=== PATIENT | female | born 1940 | race Caucasian/White ===

== ENCOUNTER → 2016-12-27 | Outpatient (CLI) | payer MEDICARE, OTHER ==
[~2016-12-27] MED LIST: ALENDRONATE OR; ARIMIDEX OR; CALCTAB22 OR; LIPI10TA OR; LIPI20TA; MAGN500T2 OR; MOTRIN600 PO; Occuvite OR; RESTASIS OU; SENN OR; TAMOXIFEN; TOPI25TA2 OR; VITAMIN B COMPLE1 OR; VITAMIN D OR
--- NOTE | 2016-12-28 14:29 | REP ---
Whole body PET CT scan: The patient has history of breast carcinoma in 2006 and currently complains of weight loss and night sweats. Study is performed for restaging of breast carcinoma. There are no comparison PET CT scans. The whole-body scanning is performed from skull base to the upper thighs. Neck and supraclavicular areas: There are no hypermetabolic foci. Chest: There are no hypermetabolic foci. Abdomen, pelvis and upper thighs: There are no hypermetabolic foci. There is nonspecific bowel radiolabeling. Impression: There are no hypermetabolic foci. The study is performed with 10 mCi of F 18 FDG. Signed by Geoff Cornejo MD 12/28/2016 02:20 P
== END ==
LOC: M PLARAD 14:22
PROVIDERS: ATTEND Internal Medicine
DX: Z85.3 Personal history of malignant neoplasm of breast (principal); R63.4 Abnormal weight loss; R61 Generalized hyperhidrosis
CPT/HCPCS: 78815; A9552

== ENCOUNTER 2018-02-10 20:08 | Emergency (ER) | payer MEDICARE, OTHER ==
[2018-02-10] MEDS: NS 500 ML IV (21:21)
[2018-02-10 21:38] LABS: BASO # 0.1 10^3/uL (0.0-0.2); BASO % 0.7 % (0.0-1.0); EOS # 0.1 10^3/uL (0.0-0.50); EOS % 1.7 % (0.0-3.0); HEMOGLOBIN 12.3 g/dl (12.0-15.5); IMMATURE GRANULOCYTE % 0.3 % (0-3.0); LYMPH # 2.1 10^3/uL (1.5-4.5); LYMPH % 30.6 % (24.0-44.0); MEAN CORPUSCULAR HGB CONC 34.2 g/dl (32.0-36.5); MEAN CORPUSCULAR VOLUME 96.5 fl (80.0-96.0); MONO # 0.7 10^3/uL (0.0-0.8); MONO % 9.3 % (0.0-5.0); NEUTROPHILS % 57.4 % (36.0-66.0); PLATELET COUNT, AUTOMATED 181 10^3/uL (150-450); RED BLOOD COUNT 3.73 10^6/uL (4.00-5.40); RED CELL DISTRIBUTION WIDTH 13.3 % (11.5-14.5)
[2018-02-10 21:56] LABS: ANION GAP 8 MEQ/L (8-16); BLOOD UREA NITROGEN 22 MG/DL (7-18); CALCIUM LEVEL 9.5 MG/DL (8.8-10.2); CARBON DIOXIDE LEVEL 29 MEQ/L (21-32); CHLORIDE LEVEL 107 MEQ/L (98-107); CREATININE FOR GFR 1.28 MG/DL (0.55-1.30); GLOMERULAR FILTRATION RATE 43.2 (>39); GLUCOSE, FASTING 157 MG/DL (70-100); POTASSIUM SERUM 3.4 MEQ/L (3.5-5.1); SODIUM LEVEL 144 MEQ/L (136-145)
[2018-02-10] MEDS: POTASSIUM CHLORIDE 10 MEQ SR TABLET PO (22:18)
== END 2018-02-10 22:53 | disposition home or self-care (01) ==
LOC: M ED 20:08
DX: E87.6 Hypokalemia (principal); E86.0 Dehydration; H40.9 Unspecified glaucoma; Z85.3 Personal history of malignant neoplasm of breast; Z91.048 Other nonmedicinal substance allergy status; Z79.899 Other long term (current) drug therapy
CPT/HCPCS: 93005

== ENCOUNTER → 2019-04-23 | Outpatient (REF) | payer MEDICARE, OTHER ==
[2019-04-23 12:44] LABS: CLOSTRIDIUM DIFFICILE PCR NEGATIVE (NEGATIVE)
== END ==
LOC: M LAB REF 11:06
PROVIDERS: ATTEND Internal Medicine
DX: R19.7 Diarrhea, unspecified (principal)

== ENCOUNTER → 2019-09-16 | Outpatient (REF) | payer MEDICARE, OTHER ==
[2019-09-16 19:10] LABS: AMYLASE 33 U/L (25-115); LIPASE 71 U/L (73-393)
== END ==
LOC: M LAB REF 17:58
PROVIDERS: ATTEND Nurse Practitioner Family
DX: R10.9 Unspecified abdominal pain (principal)

== ENCOUNTER → 2019-09-25 | Outpatient (REF) | payer MEDICARE, OTHER ==
[2019-09-25 17:32] LABS: C REACTIVE PROTEIN QUANTITATIV < 0.30 MG/DL (0.00-0.30); FERRITIN 73 NG/ML (8-252); IRON (FE) 84 UG/DL (50-170); PERCENT SATURATION 33.6 % (13.2-45.0); TOTAL IRON BINDING CAPACITY 250 UG/DL (250-450)
[2019-09-27 19:27] LABS: CA19-9 TUMOR MARKER,CARBOHYDRA 448.3 U/ML (<35.0)
== END ==
LOC: M LAB REF 16:58
PROVIDERS: ATTEND Internal Medicine
DX: R10.13 Epigastric pain (principal); D64.9 Anemia, unspecified; R10.32 Left lower quadrant pain

== ENCOUNTER → 2019-10-08 | Outpatient (CLI) | payer MEDICARE, OTHER ==
--- NOTE | 2019-10-08 14:54 | REP ---
PET/CT: HISTORY: Restaging right breast carcinoma. COMPARISONS: Comparison PET-CT study December 27, 2016. Comparison is made with recent CT abdomen and pelvis September 24, 2019, which was read as showing metastatic pancreatic carcinoma. TECHNIQUE: 52 minutes following the intravenous injection of a 8.97 mCi dose of F-18 FDG, three-dimensional PET scintigraphy is acquired from the skull base to the proximal thighs. Triplanar noncontrast CT scanning is acquired through the same anatomic range for attenuation correction, and image registration with scan parameters optimized to minimize radiation exposure to the patient. PET scintigraphy and CT datasets were fused and displayed on a workstation with multiplanar and projection display capability. PET/CT FINDINGS: No abnormal ilana or metastatic uptake is seen in the head and neck soft tissues. Normal vascular uptake is seen. There is no evidence of axillary or internal mammary hypermetabolic ilana uptake. No abnormal uptake is seen in the left breast. The right breast is surgically absent. No abnormal pulmonary parenchymal hypermetabolic uptake is seen. No hilar or mediastinal adenopathy or hypermetabolic uptake is seen. There is a 3.6 cm hypermetabolic mass in the head of the pancreas. Maximum standard uptake value in this pancreatic head lesion is 6.55. There is adjacent mesenteric hypermetabolic adenopathy as seen on recent CT study, maximum standard uptake value 6.43. Under the left hemidiaphragm in the left upper quadrant, there is a hypermetabolic lesion with maximum standard uptake value 4.39 consistent with a metastatic focus. Background liver parenchymal metabolic activity is on the range of SUV 3.5. High in the dome of the right lobe of the liver there is an equivocal focus with maximum SUV value 4.0. The accompanying CT study shows no definite mass here. This is equivocal. No other evidence of liver hypermetabolic uptake. No skeletal uptake is seen. No other abdominal or pelvic hypermetabolic focus is seen. IMPRESSION: Findings consistent with pancreatic malignancy with adjacent adenopathy, and a distant metastatic site in the subphrenic region left upper quadrant. Equivocal liver lesion. Electronically Signed by Mina Roberson MD 10/08/2019 04:03 P
== END ==
LOC: M PLARAD 11:04
PROVIDERS: ATTEND Internal Medicine
DX: C50.911 Malignant neoplasm of unspecified site of right female breast (principal)
CPT/HCPCS: 78815; A9552

== ENCOUNTER 2019-10-31 00:59 | Emergency (ER) | payer MEDICARE, OTHER ==
[~2019-10-31] VITALS: Ht 162.6 cm; Wt 50.0 kg
[2019-10-31] MEDS ORDERED: PROMETHAZINE INJ 25 MG/ML VIAL (J2550) As Ordered ONE (01:15)
[2019-10-31] MEDS ORDERED: PROMETHAZINE INJ 25 MG/ML VIAL (J2550) IM ONE (01:30)
[2019-10-31] MEDS ORDERED: NS 500 ML IV ONE (01:45)
[2019-10-31] MEDS ORDERED: ACETAMINOPHEN *IV* 650 MG in IV 1 EA IV ONE (03:15)
[2019-10-31 04:02] LABS: HEMATOCRIT 34.9 % (36.0-47.0); HEMOGLOBIN 11.7 g/dl (12.0-15.5); MEAN CORPUSCULAR HEMOGLOBIN 32.5 pg (27.0-33.0); MEAN CORPUSCULAR HGB CONC 33.5 g/dl (32.0-36.5); MEAN CORPUSCULAR VOLUME 96.9 fl (80.0-96.0); PLATELET COUNT, AUTOMATED 133 10^3/uL (150-450)
[2019-10-31 04:20] LABS: AMORPHOUS SEDIMENT SMALL (NEGATIVE); APPEARANCE, URINE HAZY (CLEAR); BACTERIA, URINE AUTO NEGATIVE (NEGATIVE); BILIRUBIN, URINE AUTO NEGATIVE (NEGATIVE); BLOOD, URINE BLOOD NEGATIVE (NEGATIVE); COLOR, URINE YELLOW (YELLOW); GLUCOSE, URINE (UA) AUTO 1+ mg/dL (NEGATIVE); KETONE, URINE AUTO TRACE mg/dL (NEGATIVE); LEUKOCYTE ESTERASE, URINE AUTO NEGATIVE (NEGATIVE); NITRITE, URINE AUTO NEGATIVE (NEGATIVE); PROTEIN, URINE AUTO NEGATIVE (NEGATIVE); RBC, URINE AUTO 3 /HPF (0-3); SPECIFIC GRAVITY URINE AUTO 1.008 (1.002-1.035); SQUAMOUS EPITHELIAL CELL UR AU 0 /HPF (0-6); UROBILINOGEN, URINE AUTO 0.2 mg/dL (0.0-2.0); WBC, URINE AUTO 1 /HPF (0-3)
[2019-10-31 04:39] LABS: ALBUMIN 3.6 GM/DL (3.2-5.2); BILIRUBIN,TOTAL 0.6 MG/DL (0.2-1.0); CALCIUM LEVEL 10.2 MG/DL (8.8-10.2); CREATININE FOR GFR 1.07 MG/DL (0.55-1.30); GLOMERULAR FILTRATION RATE 52.8 (>39); POTASSIUM SERUM 3.6 MEQ/L (3.5-5.1); TOTAL PROTEIN 7.5 GM/DL (6.4-8.2)
[2019-10-31] MEDS ORDERED: PROM25TA12 PO (04:58)
[2019-10-31 06:07] VITALS: BP 154/72
--- NOTE | 2019-10-31 07:34 | REP ---
Clinical: Fever and chest pain . Comparison: 03/13/2012 . Findings: The mediastinum and cardiac silhouette are stable and within normal limits for portable technique. The lung morocho are clear without acute consolidation, effusion, or pneumothorax. Skeletal structures are intact. Impression: No acute cardiopulmonary process appreciated. Electronically Signed by Anjel Soriano MD 10/31/2019 07:25 A
== END 2019-10-31 07:15 | disposition home or self-care (01) ==
LOC: M ED 00:59
DX: R11.10 Vomiting, unspecified (principal); Z92.21 Personal history of antineoplastic chemotherapy; C25.9 Malignant neoplasm of pancreas, unspecified; Z91.048 Other nonmedicinal substance allergy status; Z79.899 Other long term (current) drug therapy
CPT/HCPCS: 71045; 80047; 80053; 81001; 83605; 85027; 87040; 87486; 87581; 87633; 87798; 96361; 96372; 96374; 99284; J0131

== ENCOUNTER → 2019-11-04 | Outpatient (CLI) | payer MEDICARE, OTHER ==
[~2019-11-04] MED LIST changes: +ATOR1TAB19 PO; +CEPH500C PO; +CREO24CA PO; +D31000TA2 PO; +DOCU100C16 PO; +ENAB7.5T PO; +LORA-674 PO; +MEGE400S10 PO; +MEGE40TA PO; +MIRA3350 PO; +ONDA8TAB8 PO; +OXYC1TAB23 PO; +PRESCAP PO; +PROC10TA4 PO; +PROM25TA12 PO; +REST0.05 OU; +SENO8.6T10 PO; +SPIR1CAP INH; +SUCR1TA PO; +TOPI50TA9 PO; +XARE15TA PO; +XARE20TA PO
[2019-12-02 03:43] LABS: BASO % 0.6 % (0.0-1.0); EOS # 0.1 10^3/uL (0.0-0.5); EOS % 0.9 % (0.0-3.0); HEMATOCRIT 33.4 % (36.0-47.0); HEMOGLOBIN 11.5 g/dl (12.0-15.5); LYMPH # 0.7 10^3/uL (1.5-5.0); LYMPH % 12.9 % (24.0-44.0); MEAN CORPUSCULAR HEMOGLOBIN 32.4 pg (27.0-33.0); MEAN CORPUSCULAR HGB CONC 34.4 g/dl (32.0-36.5); MEAN CORPUSCULAR VOLUME 94.1 fl (80.0-96.0); MONO # 0.2 10^3/uL (0.0-0.8); MONO % 2.8 % (0.0-5.0); NEUTROPHILS # 4.3 10^3/uL (1.5-8.5); NEUTROPHILS % 81.7 % (36.0-66.0); PLATELET COUNT, AUTOMATED 135 10^3/uL (150-450); RED BLOOD COUNT 3.55 10^6/uL (4.00-5.40); WHITE BLOOD COUNT 5.3 10^3/uL (4.0-10.0)
[2020-01-10 14:52] LABS: GLUCOSE, FASTING SEE SEPARATE REPORT MG/DL
== END ==
LOC: M LAB 10:11
PROVIDERS: ATTEND Nurse Practitioner Family
DX: R11.2 Nausea with vomiting, unspecified (principal); E87.6 Hypokalemia; C25.0 Malignant neoplasm of head of pancreas; K59.00 Constipation, unspecified

== ENCOUNTER 2019-11-29 20:25 | Observation (INO) | payer MEDICARE, OTHER ==
[~2019-11-29] VITALS: Ht 162.6 cm; Wt 48.6 kg
[~2019-11-29 20:25] MED LIST changes: -ATOR1TAB19 PO; -CEPH500C PO; -CREO24CA PO; -D31000TA2 PO; -DOCU100C16 PO; -ENAB7.5T PO; -LORA-674 PO; -MEGE400S10 PO; -MEGE40TA PO; -MIRA3350 PO; -ONDA8TAB8 PO; -OXYC1TAB23 PO; -PRESCAP PO; -PROC10TA4 PO; -REST0.05 OU; -SENO8.6T10 PO; -SPIR1CAP INH; -SUCR1TA PO; -TOPI50TA9 PO; -XARE15TA PO; -XARE20TA PO
[2019-11-29 22:13] LABS: BASO % 0.1 % (0.0-1.0); EOS % 0.1 % (0.0-3.0); HEMATOCRIT 22.9 % (36.0-47.0); HEMOGLOBIN 7.9 g/dl (12.0-15.5); LYMPH # 0.4 10^3/uL (1.5-5.0); LYMPH % 4.5 % (24.0-44.0); MEAN CORPUSCULAR HEMOGLOBIN 33.5 pg (27.0-33.0); MEAN CORPUSCULAR HGB CONC 34.5 g/dl (32.0-36.5); MONO # 0.2 10^3/uL (0.0-0.8); NEUTROPHILS # 7.5 10^3/uL (1.5-8.5); NEUTROPHILS % 92.7 % (36.0-66.0); PLATELET COUNT, AUTOMATED 103 10^3/uL (150-450); RED BLOOD COUNT 2.36 10^6/uL (4.00-5.40); WHITE BLOOD COUNT 8.1 10^3/uL (4.0-10.0)
--- NOTE | 2019-11-29 22:23 | REPVR ---
PROCEDURE INFORMATION: Exam: CT Head Without Contrast Exam date and time: 11/29/2019 10:11 PM Age: 79 years old Clinical indication: Syncope and collapse; Additional info: Sync TECHNIQUE: Imaging protocol: Computed tomography of the head without contrast. Radiation optimization: All CT scans at this facility use at least one of these dose optimization techniques: automated exposure control; mA and/or kV adjustment per patient size (includes targeted exams where dose is matched to clinical indication); or iterative reconstruction. COMPARISON: No relevant prior studies available. FINDINGS: Brain: There is mild age related parenchymal volume loss. Mild white matter changes are consistent with age related small vessel white matter angiopathic gliosis. Ventricles: The degree of ventricular dilatation is normal for age and/or degree of atrophy present. Bones/joints: Unremarkable. No acute fracture. Sinuses: Visualized sinuses are unremarkable. No fluid levels. Mastoid air cells: Visualized mastoid air cells are well aerated. Soft tissues: Unremarkable. IMPRESSION: 1. There is mild age related parenchymal volume loss. Mild white matter changes are consistent with age related small vessel white matter angiopathic gliosis. 2. The degree of ventricular dilatation is normal for age and/or degree of atrophy present. 3. No acute intracranial findings. Electronically signed by: Bipin Rivera On 11/29/2019 22:23:05 PM
[2019-11-29 22:46] LABS: BLOOD UREA NITROGEN 17 MG/DL (7-18); CALCIUM LEVEL 7.3 MG/DL (8.8-10.2); CARBON DIOXIDE LEVEL 21 MEQ/L (21-32); CHLORIDE LEVEL 113 MEQ/L (98-107); CREATININE FOR GFR 0.67 MG/DL (0.55-1.30); GLOMERULAR FILTRATION RATE > 60.0 (>39); GLUCOSE, FASTING 146 MG/DL (70-100); POTASSIUM SERUM 3.6 MEQ/L (3.5-5.1); SODIUM LEVEL 136 MEQ/L (136-145)
[2019-11-29] MEDS ORDERED: OXYC1TAB23 PO (23:47)
[2019-11-29] MEDS ORDERED: XARE20TA PO (23:47)
[2019-11-30] MEDS ORDERED: XARE15TA PO (01:34)
[2019-11-30] MEDS ORDERED: DOCU100C16 PO (01:34)
[2019-11-30] MEDS ORDERED: CREO24CA PO ×2 (01:34)
[2019-11-30] MEDS ORDERED: CEPH500C PO (01:34)
[2019-11-30] MEDS ORDERED: PRESCAP PO (01:34)
[2019-11-30] MEDS ORDERED: PROC10TA4 PO (01:34)
[2019-11-30] MEDS ORDERED: ATOR1TAB19 PO (01:34)
[2019-11-30] MEDS ORDERED: ENAB7.5T PO (01:34)
[2019-11-30] MEDS ORDERED: MIRA3350 PO (01:34)
[2019-11-30] MEDS ORDERED: LORA-674 PO (01:34)
[2019-11-30] MEDS ORDERED: REST0.05 OU (01:34)
[2019-11-30] MEDS ORDERED: ONDA8TAB8 PO (01:34)
[2019-11-30] MEDS ORDERED: SPIR1CAP INH (01:41)
[2019-11-30] MEDS ORDERED: TOPI50TA9 PO (01:41)
[2019-11-30] MEDS ORDERED: D31000TA2 PO (01:41)
[2019-11-30] MEDS ORDERED: SUCR1TA PO (01:41)
[2019-11-30] MEDS ORDERED: SENO8.6T10 PO (01:41)
[2019-11-30] MEDS ORDERED: ISOVUE-370 76% 100ML VIAL As Ordered ONE (03:04)
[2019-11-30] MEDS ORDERED: PERCOCET 5MG/325MG TAB PO PRN (03:30)
[2019-11-30] MEDS ORDERED: ACETAMINOPHEN TAB 650MG DOSE (2X325MG) PO PRN (03:30)
[2019-11-30] MEDS ORDERED: PROMETHAZINE 25 MG TAB PO PRN (03:30)
[2019-11-30] MEDS ORDERED: SENOKOT S TAB PO PRN (03:30)
[2019-11-30] MEDS ORDERED: ONDANSETRON 4 MG ORAL DISINTEGRATING TAB PO PRN (03:30)
[2019-11-30] MEDS ORDERED: PROCHLORPERAZINE 5 MG TAB (S0183) PO PRN (03:30)
--- NOTE | 2019-11-30 03:53 | REPVR ---
PROCEDURE INFORMATION: Exam: CT Angiography Chest With Contrast Exam date and time: 11/30/2019 3:09 AM Age: 79 years old Clinical indication: Dyspnea and other: Dvt; Additional info: HX leg dvt/dyspnea TECHNIQUE: Imaging protocol: Computed tomographic angiography of the chest with intravenous contrast. 3D rendering (Not supervised by radiologist): MIP and/or 3D reconstructed images were created by the technologist. Radiation optimization: All CT scans at this facility use at least one of these dose optimization techniques: automated exposure control; mA and/or kV adjustment per patient size (includes targeted exams where dose is matched to clinical indication); or iterative reconstruction. Contrast material: ISO; Contrast volume: 75 ml; Contrast route: INTRAVENOUS (IV); COMPARISON: CR Chest, 1 view 2019-10-31 03:10 FINDINGS: Tubes, catheters and devices: Left IJ central venous catheter visualized. Pulmonary arteries: No filling defects in the pulmonary arteries to suggest pulmonary emboli. The pulmonary arteries demonstrate mild central enlargement, consistent with mild pulmonary hypertension. Aorta: Unremarkable. No aortic aneurysm. No aortic dissection. Lungs: Dependent subsegmental pulmonary atelectasis. Pleural space: Unremarkable. No pneumothorax. No pleural effusion. Heart: Unremarkable. No cardiomegaly. No pericardial effusion. Mediastinal space: Small gastroesophageal sliding type hiatal hernia. Lymph nodes: Upper abdominal adenopathy. Liver: Numerous liver lesions with ill-defined margins, some are compatible with cysts, and others are indeterminate, recommend further evaluation to exclude liver metastases. Gallbladder and bile ducts: Substantial gallbladder distension. Pancreas: Pancreatic duct dilatation. Suspected pancreatic mass. Stomach and bowel: Gastric wall thickening. Bones/joints: Unremarkable. No acute fracture. Soft tissues: Unremarkable. IMPRESSION: 1. No filling defects in the pulmonary arteries to suggest pulmonary emboli. 2. Numerous liver lesions with ill-defined margins, some are compatible with cysts, and others are indeterminate, recommend further evaluation to exclude liver metastases. 3. Substantial gallbladder distension. 4. Upper abdominal suspected neoplasm. Correlate with priors. Electronically signed by: Stevie Dee On 11/30/2019 03:53:42 AM
[2019-11-30 04:25] VITALS: BP 147/80
--- NOTE | 2019-11-30 07:26 | HPEPDOC ---
[facility] Medical History & Physical Date of Admission Nov 30, 2019 Date of Service: Nov 30, 2019 History and Physical CHIEF COMPLAINT: weakness HISTORY OF PRESENT ILLNESS: Patient is a 79 year old female with recent diagnosis of pancreatic cancer and LLE DVT on Xarelto presents to the ER with complaints of generalized weakness and mild SOB for the past 2-3 days. She was recently diagnosed with pancreatic cancer and had started on treatment with recent change in regimen. She does not have any particular complaints apart from weakness. Denies any chest pain, fever, chills, blood in stool or other sources, nausea, vomiting. Hb noted to be at 7.9 from baseline around 11-12 in October. PAST MEDICAL HISTORY: Refer to [facility] PAST SURGICAL HISTORY: Tonsillectomy R. mastectomy ear surgery SOCIAL HISTORY: Denies tobacco, alcohol or drug use. FAMILY HISTORY: Dad- leukemia Mom- breast and uterine cancer ALLERGIES: Please see below. REVIEW OF SYSTEMS: 10 point ROS negative except as above HOME MEDICATIONS: Please see below. PHYSICAL EXAMINATION: - General: Lying in bed comfortably, Speaking in full sentences, AAOx3 - HEENT: Atraumatic, PERRLA - CVS: +S1S2 - Lungs: Good air entry bilaterally, No appreciable wheezing / rales / rhonchi - Abdomen: Soft, Non-distended, Non-tender - Extremities: No extremity swelling, limbs intact - Skin: Warm and dry - Neuro: No focal motor or sensory deficit LABORATORY DATA: See below. IMAGING: CT Head: 1. There is mild age related parenchymal volume loss. Mild white matter changes are consistent with age related small vessel white matter angiopathic gliosis. 2. The degree of ventricular dilatation is normal for age and/or degree of atrophy present. 3. No acute intracranial findings. CT chest angio: 1. No filling defects in the pulmonary arteries to suggest pulmonary emboli. 2. Numerous liver lesions with ill-defined margins, some are compatible with cysts, and others are indeterminate, recommend further evaluation to exclude liver metastases. 3. Substantial gallbladder distension. 4. Upper abdominal suspected neoplasm. Correlate with priors. MICROBIOLOGY: Please see below. ASSESSMENT AND PLAN: 1. Generalized weakness - Suspect may be due to rapidly progressing pancreatic cancer. - Patient anemic but likely not attributing significantly to her symptoms. - Order PT. Case management consult, may need additional help at home. 2. Anemia - No evidence of bleed. Suspect may be 2/2 malignancy and its treatment. - Monitor and transfuse if needed. monitor H/H. 3. HLD - atorvastatin. 4. LLE DVT - Xarelto DVT ppx: SCD and already on Xarelto Code status: Full code Vital Signs Vital Signs Date Time Temp Pulse Resp B/P (MAP) Pulse Ox O2 Delivery O2 Flow Rate FiO2 11/30/19 05:35 18 11/30/19 04:25 100.0 97 147/80 (102) 90 Room Air Laboratory Data Labs 24H Laboratory Tests 2 11/29/19 22:00: Immature Granulocyte % (Auto) 0.6, Neutrophils (%) (Auto) 92.7H, Lymphocytes (%) (Auto) 4.5L, Monocytes (%) (Auto) 2.0, Eosinophils (%) (Auto) 0.1, Basophils (%) (Auto) 0.1, Neutrophils # (Auto) 7.5, Lymphocytes # (Auto) 0.4L, Monocytes # (Auto) 0.2, Eosinophils # (Auto) 0.0, Basophils # (Auto) 0.0, Nucleated Red Blood Cells % (auto) 0.0, Anion Gap 2L, Glomerular Filtration Rate > 60.0, Calcium Level 7.3L CBC/BMP Laboratory Tests 11/29/19 22:00 Home Medications Scheduled Atorvastatin Calcium (Atorvastatin Calcium) 10 Mg Tablet, 10 MG PO QPM Cephalexin (Cephalexin) 500 Mg Capsule, 500 MG PO TID FOR 5 DAYS, STARTED 11/28/2019 Cholecalciferol (Vitamin D3) (Vitamin D3) 1,000 Unit Tablet, 1,000 UNITS PO DAILY Cyclosporine (Restasis) 0.05% Droperette, 1 DROP OU BID Darifenacin Hydrobromide (Enablex) 7.5 Mg Tab.er.24h, 15 MG PO DAILY Docusate Sodium (Docusate Sodium) 100 Mg Capsule, 100 MG PO DAILY for constipation Loratadine (Loratadine) 10 Mg Tablet, 10 MG PO DAILY Pancreatic Enzymes (Mary Ann Curtis 24,000 Units Capsule) 1 Each Capsule., 48,000 UNITS PO TID WITH MEALS Pancreatic Enzymes (Mary Ann Curtis 24,000 Units Capsule) 1 Each Capsule., 24,000 UNI TS PO DAILY WITH SNACK Polyethylene Glycol 3350 (Miralax) 119 Gm Powder, 17 GRAM PO DAILY for constipation dissolve in water Rivaroxaban (Xarelto) 20 Mg Tablet, 20 MG PO QPM TO START 12/13/2019 Rivaroxaban (Xarelto) 15 Mg Tablet, 15 MG PO BID Sucralfate (Sucralfate) 1 Gm Tablet, 1 GRAM PO TID Tiotropium [place] (Spiriva) 18 Mcg Cap.w.dev, 1 CAP INH DAILY Topiramate (Topiramate) 50 Mg Tablet, 50 MG PO QPM Vit A/Vit C/Vit E/Zinc/Copper (Preservision Areds Softgel) 1 Each Capsule, 1 CAP PO DAILY Scheduled PRN Ondansetron (Ondansetron Odt) 8 Mg Tab.rapdis, 8 MG PO Q8H PRN for NAUSEA Oxycodone HCl/Acetaminophen (Oxycodone-Acetaminophen 5-325) 1 Each Tablet, 1 TAB PO Q6H PRN for PAIN Prochlorperazine Maleate (Prochlorperazine Maleate) 10 Mg Tablet, 10 MG PO Q6H PRN for NAUSEA OR VOMITING Promethazine HCl (Promethazine HCl) 25 Mg Tablet, 25 MG PO Q8HP PRN for nausea/vomiting Sennosides/Docusate Sodium (Senokot-S Tablet) 1 Each Tablet, 1 TAB PO BID PRN for CONSTIPATION Allergies Coded Allergies: TAPE (Verified Allergy, Intermediate, SORES, 05/31/06) No Known Drug Allergies (Verified Allergy, Unknown, 10/31/19) A-FIB/CHADSVASC A-FIB History Current/History of A-Fib/PAF?: No WILLIE MARIA MD Nov 30, 2019 07:26
[2019-11-30] MEDS ORDERED: TIOTROPIUM INHALER/CAPSULE (SPIRIVA) INH SCH (08:00)
[2019-11-30] MEDS: CREON-24 CAPSULE PO SCH ×3 (08:46→18:00)
[2019-11-30] MEDS ORDERED: VITAMIN D 1,000 INTERNATIONAL UNITS TABLET PO SCH (09:00)
[2019-11-30] MEDS ORDERED: DOCUSATE SODIUM 100 MG CAP PO SCH (09:00)
[2019-11-30] MEDS ORDERED: LORATADINE 10 MG TAB PO SCH (09:00)
[2019-11-30] MEDS ORDERED: MIRALAX *UNIT DOSE* 17GM PACKET PO SCH (09:00)
[2019-11-30] MEDS ORDERED: CREON-24 CAPSULE PO PRN (09:00)
[2019-11-30] MEDS: SUCRALFATE 1 GM TAB PO SCH ×3 (09:00→15:04)
[2019-11-30] MEDS ORDERED: OCUVITE 1 TAB PO SCH (09:00)
[2019-11-30] MEDS: CEPHALEXIN 500 MG CAP PO SCH ×2 (09:44→15:04)
[2019-11-30] MEDS: RIVAROXABAN 15 MG TAB (XARELTO) PO SCH ×2 (09:44→18:00)
[2019-11-30 11:33] LABS: HEMOGLOBIN 9.5 g/dl (12.0-15.5); MEAN CORPUSCULAR HEMOGLOBIN 33.2 pg (27.0-33.0); MEAN CORPUSCULAR HGB CONC 33.9 g/dl (32.0-36.5); MEAN CORPUSCULAR VOLUME 97.9 fl (80.0-96.0); PLATELET COUNT, AUTOMATED 110 10^3/uL (150-450); RED BLOOD COUNT 2.86 10^6/uL (4.00-5.40); WHITE BLOOD COUNT 7.4 10^3/uL (4.0-10.0)
[2019-11-30 11:35] LABS: BLOOD UREA NITROGEN 14 MG/DL (7-18); CALCIUM LEVEL 8.8 MG/DL (8.8-10.2); CARBON DIOXIDE LEVEL 28 MEQ/L (21-32); CHLORIDE LEVEL 106 MEQ/L (98-107); CREATININE FOR GFR 0.88 MG/DL (0.55-1.30); GLOMERULAR FILTRATION RATE > 60.0 (>39); GLUCOSE, FASTING 201 MG/DL (70-100); POTASSIUM SERUM 3.4 MEQ/L (3.5-5.1); SODIUM LEVEL 138 MEQ/L (136-145)
[2019-11-30 14:00] VITALS: BP 128/60
[2019-11-30] MEDS ORDERED: MEGE400S10 PO (15:12)
[2019-11-30] MEDS ORDERED: MEGE40TA PO (15:14)
[2019-11-30] MEDS ORDERED: TOPIRAMATE (TopAMAX) 25 MG TAB PO SCH (21:00)
[2019-11-30] MEDS ORDERED: ATORVASTATIN 10 MG TAB PO SCH (21:00)
--- NOTE | 2019-12-24 13:55 | ECGEPIP ---
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
== END 2019-11-30 18:36 | disposition home or self-care (01) ==
LOC: M ED 20:25 → EDBD 20:25 → M ED INP 20:26 → M MSPAV 11-30 04:23
PROVIDERS: ADMIT Student in an Organized Health Care Education/Training Program; ATTEND Internal Medicine
DX: R53.1 Weakness (principal); C25.9 Malignant neoplasm of pancreas, unspecified; D64.9 Anemia, unspecified; I67.82 Cerebral ischemia; R91.8 Other nonspecific abnormal finding of lung field; E78.5 Hyperlipidemia, unspecified; I82.402 Acute embolism and thrombosis of unspecified deep veins of left lower extremity; Z91.048 Other nonmedicinal substance allergy status; Z79.899 Other long term (current) drug therapy; Z79.01 Long term (current) use of anticoagulants; Z79.2 Long term (current) use of antibiotics
CPT/HCPCS: 70450; 71275; 80048; 85025; 85027; 93005; 93041; 97161; 97530; 99284; G0378; Q9967

== ENCOUNTER → 2019-12-02 | Outpatient (CLI) | payer MEDICARE, OTHER ==
[~2019-12-02] MED LIST changes: +ATOR1TAB19 PO; +CEPH500C PO; +CREO24CA PO; +D31000TA2 PO; +DOCU100C16 PO; +ENAB7.5T PO; +LORA-674 PO; +MEGE400S10 PO; +MEGE40TA PO; +MIRA3350 PO; +ONDA8TAB8 PO; +OXYC1TAB23 PO; +PRESCAP PO; +PROC10TA4 PO; +REST0.05 OU; +SENO8.6T10 PO; +SPIR1CAP INH; +SUCR1TA PO; +TOPI50TA9 PO; +XARE15TA PO; +XARE20TA PO
[2019-12-02 16:19] LABS: BASO % 0.3 % (0.0-1.0); EOS # 0.1 10^3/uL (0.0-0.5); EOS % 0.8 % (0.0-3.0); HEMATOCRIT 27.1 % (36.0-47.0); HEMOGLOBIN 9.2 g/dl (12.0-15.5); LYMPH # 0.8 10^3/uL (1.5-5.0); LYMPH % 9.3 % (24.0-44.0); MEAN CORPUSCULAR HEMOGLOBIN 33.1 pg (27.0-33.0); MEAN CORPUSCULAR HGB CONC 33.9 g/dl (32.0-36.5); MEAN CORPUSCULAR VOLUME 97.5 fl (80.0-96.0); MONO # 0.3 10^3/uL (0.0-0.8); NEUTROPHILS # 7.4 10^3/uL (1.5-8.5); NEUTROPHILS % 86.3 % (36.0-66.0); PLATELET COUNT, AUTOMATED 115 10^3/uL (150-450); RED BLOOD COUNT 2.78 10^6/uL (4.00-5.40); WHITE BLOOD COUNT 8.6 10^3/uL (4.0-10.0)
[2019-12-02 17:03] LABS: BLOOD UREA NITROGEN 12 MG/DL (7-18); CALCIUM LEVEL 8.9 MG/DL (8.8-10.2); CARBON DIOXIDE LEVEL 26 MEQ/L (21-32); CHLORIDE LEVEL 106 MEQ/L (98-107); CREATININE FOR GFR 0.74 MG/DL (0.55-1.30); GLOMERULAR FILTRATION RATE > 60.0 (>39); GLUCOSE, FASTING 123 MG/DL (70-100); POTASSIUM SERUM 3.7 MEQ/L (3.5-5.1); SODIUM LEVEL 140 MEQ/L (136-145)
== END ==
LOC: M WUC 14:13
PROVIDERS: ATTEND Physician Assistant
DX: R53.83 Other fatigue (principal)